=== PATIENT | male | born 1950 | race Caucasian/White ===

== ENCOUNTER 2022-06-06 07:55 | Emergency (ER) | payer MEDICARE ==
[2022-06-06] MEDS ORDERED: Cephalexin 500 MG Cap PO ONE (09:18)
[2022-06-06 09:33] LABS: CARBON DIOXIDE,CO2 25.1 mmol/L (21.0-32.0)
== END 2022-06-06 10:13 | disposition home or self-care (01) ==
LOC: MW.ED 07:55
DX: N39.0 Urinary tract infection, site not specified (principal)
CPT/HCPCS: 36415; 51702; 80053; 81001; 85025; 87086; 87088; 87186; 99283; A9270

== ENCOUNTER 2022-06-08 21:29 | Emergency (ER) | payer MEDICARE | END 2022-06-08 22:13 | disposition home or self-care (01) | LOC: MW.ED 21:29 | DX: R33.9 Retention of urine, unspecified (principal) | CPT/HCPCS: 51702; 99283 ==

== ENCOUNTER 2022-06-12 09:26 | Emergency (ER) | payer MEDICARE | END 2022-06-12 11:35 | disposition home or self-care (01) | LOC: MW.ED 09:26 | DX: Z46.6 Encounter for fitting and adjustment of urinary device (principal) | CPT/HCPCS: 99283 ==

== ENCOUNTER 2022-06-12 17:19 | Emergency (ER) | payer MEDICARE | END 2022-06-12 19:51 | disposition home or self-care (01) | LOC: MW.ED 17:19 | DX: R33.9 Retention of urine, unspecified (principal) | CPT/HCPCS: 51702; 99283; 99283-25 ==